=== PATIENT | female | born 1970 | race Caucasian/White ===

== ENCOUNTER 2018-10-09 18:13 | Observation (INO) | payer MEDICAID, OTHER ==
--- NOTE | 2018-10-09 19:44 | ED ---
Neurological HPI - HPI Summary HPI Summary: A 48 y/o F presents to ED c/o intermittent L-sided numbness to face, LUE and LLE onset last night. She cooked and ate dinner around 1800 yesterday. Then, patient watched TV with her grandchildren at onset. She felt the sx at first in her neck and through her LUE, described as pins and needle. Today, the sensation spread to her LLE. Associated sx: VALERO, mild weakness to L side, dragging her LLE, chills, dizziness. Denies: fever, CP. She has never had similar sx previously. Patient moved from [place] to [place] and has been off her meds ( Xanax and Zoloft) for the past two months. She denies other daily medications. She hasnt had an opportunity to see a doctor in [place]. Shes been taking them for approx. 5 years. She states being healthy otherwise. 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 - History of Current Complaint Chief Complaint: EDNeurologicalDeficit Stated Complaint: LT SIDE NUMBNESS PER PT Time Seen by Provider: 10/09/18 19:38 Hx Obtained From: Patient Onset/Duration: Started hours ago - last night ~ 1800, Still Present Timing: Constant Onset Severity: Moderate Current Severity: Severe Number of Seizures: 0 Pain Intensity: 10 Pain Scale Used: 0-10 Numeric Character: Numbness/Tingling - face, LUE, LLE Associated Signs and Symptoms: Positive: Unsteady Gait - dragging LLE, Headache , Weakness - L-sided, Dizziness. Negative: Fever, Chest Pain - Allergy/Home Medications Allergies/Adverse Reactions: Allergies Allergy/AdvReac Type Severity Reaction Status Date / Time bupropion [From Wellbutrin] Allergy Hives Verified 10/09/18 18:20 PMH/Surg Hx/FS Hx/Imm Hx Previously Healthy: No Sensory History: Reports: Hx Contacts or Glasses Opthamlomology History: Reports: Hx Contacts or Glasses Psychiatric History: Reports: Hx Anxiety, Hx Depression Infectious Disease History: No Infectious Disease History: Denies: Traveled Outside the [place] in Last 30 Days - Family History Known Family History: Positive: Cardiac Disease, Hypertension, Diabetes Family History: Breast CA; Brain CA - Social History Occupation: Unemployed Lives: Alone Review of Systems Positive: Chills. Negative: Fever Negative: Chest Pain Neurological: Other - pos: dizziness; unsteady gait - dragging LLE Positive: Headache, Weakness - L-sided, Paresthesia - L-sided, Numbness - face, LUE, LLE All Other Systems Reviewed And Are Negative: Yes Physical Exam - Summary Physical Exam Summary: Appearance: Well-appearing, Well-nourished, lying in bed comfortably Skin: Warm, dry, no obvious rash Eyes: sclera anicteric, no conjunctival pallor ENT: mucous membranes moist, pharynx appears normal Neck: Supple, nontender Respiratory: Clear to auscultation, no signs of respiratory distress Cardiovascular: Normal S1, S2. No murmurs. Normal distal pulses in tibial and radial bilaterally. Abdomen: Soft, nontender, normal active bowel sounds present Musculoskeletal: There is no rigidity or tremor noted. 5/5 strength in RUE/RLE, but 4/5 strength in LUE/LLE Neurological: Awake and alert, mentation is normal, speech is fluent and appropriate, level of consciousness is nml. The patient is alert and oriented. Cranial nerves are grossly intact, no bulbar paresis, EOM intact. Gaze is conjugate and without nystagmus. Peripheral vision is intact to confrontation. There are no gross sensory abnormalities to light touch. There is no gross truncal ataxia. Gait shows LLE weakness with leg slightly dragging, but is able to walk. Psychiatric: affect is normal, does not appear anxious or depressed Triage Information Reviewed: Yes Vital Signs On Initial Exam: Initial Vitals Temp Pulse Resp BP Pulse Ox 98 F 78 16 109/75 98 10/09/18 18:15 10/09/18 18:15 10/09/18 18:15 10/09/18 18:15 10/09/18 18:15 Vital Signs Reviewed: Yes - [place] Coma Scale Best Eye Response: 4 - Spontaneous Best Motor Response: 6 - Obeys Commands Best Verbal Response: 5 - Oriented Coma Scale Total: 15 Diagnostics - Vital Signs Vital Signs Temp Pulse Resp BP Pulse Ox 10/09/18 18:15 98 F 78 16 109/75 98 - Laboratory Result Diagrams: 10/09/18 22:10 10/09/18 22:10 Lab Statement: Any lab studies that have been ordered have been reviewed, and results considered in the medical decision making process. - CT BRAIN CT CT Interpretation Completed By: Radiologist Summary of CT Findings: IMPRESSION: Normal noncontrast head CT. ED provider has reviewed this report. - EKG 20:05 Cardiac Rate: NL - 73 bpm EKG Rhythm: Sinus Rhythm Summary of EKG Findings: NSR at 73 BPM, P waves, QRS complex, and T waves are within normal limits, T waves and intervals are normal, no ischemic changes. - Additional Comments Diagnostic Additional Comments: Neck MRA as read by radiologist: IMPRESSION: Normal neck MRA. ED provider has reviewed this report. Head MRA as read by radiologist: IMPRESSION: Normal brain MRA. ED provider has reviewed this report. Brain MRI as read by radiologist: IMPRESSION: Normal non-contrast brain MRI. ED provider has reviewed this report. C-SPINE MRI as read by radiologist: IMPRESSION: Mild multilevel cervical spondylopathy causing canal stenosis at C4- C5 through C6-C7. No nerve root compression. ED provider has reviewed this report. Re-Evaluation - Re-Evaluation 1 Re-Evaluation Time: 20:06 Change: Unchanged Comment: Discussing with patient the consult with Dr. Fairbanks, neuro, and plans for MRIs and possible admission. Patient voiced understanding. Course/Dx - Course Course Of Treatment: Patient is a 48 y/o F presenting with intermittent L-sided numbness to face, LUE and LLE onset last night. She was at rest at onset of sx. Sx started in her neck and through her LUE as parasthesia. Today, the sensation spread to her LLE. Associated sx: VALERO, mild weakness to L side, dragging her LLE , chills, dizziness. No fever, nor CP. Lab work shows WBC: 13, RBC: 5.06, alk phos: 132, total protein: 5.8. EKG shows NSR at 73 BPM, P waves, QRS complex, and T waves are within normal limits, T waves and intervals are normal, no ischemic changes. Brain CT is unremarkable. Neck and Head MRAs are unremarkable. Brain MRI had no acute findings. C-Spine MRI shows "Mild multilevel cervical spondylopathy causing canal stenosis at C4-C5 through C6- C7. No nerve root compression." - Diagnoses Provider Diagnoses: CVA (cerebral vascular accident) - Physician Notifications Discussed Care Of Patient With: Andre Fairbanks - neuro Time Discussed With Above Provider: 19:49 Instructed by Provider To: Other - Recommends MRA of head and neck, MRI brain and c-spine, stroke work-up, and admission to hospitalist. Discharge - Sign-Out/Discharge Documenting (check all that apply): Patient Departure - ADMIT All imaging exams completed and their final reports reviewed: Yes Patient Received Moderate/Deep Sedation with Procedure: No - Discharge Plan Condition: Fair Disposition: ADMITTED TO [facility] - Billing Disposition and Condition Condition: FAIR Disposition: Admitted to [facility] - Attestation Statements Document Initiated by Hinaibe: Yes Documenting Scribe: Charlie Penn Provider For Whom Hinaibe is Documenting (Include Credential): Dr. Franko Tijerina MD Scribe Attestation: Charlie Nielson scribed for Dr. Franko Tijerina MD on 10/10/18 at 0240. Scribe Documentation Reviewed: Yes Provider Attestation: The documentation as recorded by the hinaibCharlie koch accurately reflects the service I personally performed and the decisions made by , Dr. Franko Tijerina MD Status of Scribe Document: Viewed Consult Consult: 2049: Consult with Dr. Collins, hospitalist Will admit patient.
[2018-10-09] MEDS ORDERED: LORazepam TAB(*) 1 MG PO ONE (20:06)
[2018-10-09] MEDS ORDERED: Lorazepam PYXIS KEY ONE (20:26)
[2018-10-09] MEDS ORDERED: LORazepam INJ* 2 MG/ML 1 ML VIAL ONE ×2 (20:26)
[2018-10-09] MEDS ORDERED: LORazepam INJ* 2 MG/ML 1 ML VIAL IV PUSH ONE (20:28)
[2018-10-09] MEDS ORDERED: Gadobenate* (CONTRAST) 529 MG/ML 10 ML SDV IV ONE (20:47)
[2018-10-09 22:22] LABS: ABS Basophils 0.1 10^3/ul (0-0.2); ABS Eosinophils 0.2 10^3/ul (0-0.6); ABS Lymphocytes 3.6 10^3/ul (1.0-4.8); ABS Monocytes 1.2 10^3/ul (0-0.8); Eosinophil % 1.5 %; Hematocrit 45 % (35-47); Hemoglobin 14.6 g/dL (12.0-16.0); Lymphocyte % 27.6 %; Mean Corpuscular HGB Conc 33 g/dL (31-36); Mean Corpuscular Hemoglobin 29 pg (27-31); Mean Corpuscular Volume 89 fL (80-97); Mean Platelet Volume 8.2 fL (7.4-10.4); Nucleated Red Blood Cells % 0.1; Platelet Count 308 10^3/uL (150-450); Red Blood Count 5.06 10^6 /uL (3.70-4.87); Red Cell Distribution Width 15 % (10.5-15)
[2018-10-09 22:28] LABS: INR 0.91 (0.82-1.09)
[2018-10-09 22:39] LABS: ALT 13 U/L (7-52); AST 17 U/L (13-39); Albumin 3.4 g/dL (3.2-5.2); Albumin/Globulin Ratio 1.4 (1-3); Alkaline Phosphatase 132 U/L (34-104); Anion Gap 4 mmol/L (2-11); BUN/Creatinine Ratio 11.7 (8-20); Blood Urea Nitrogen 9 mg/dL (6-24); CO2 Carbon Dioxide 25 mmol/L (22-32); Chloride 109 mmol/L (101-111); EGFR African American 97.7 (>60); EGFR Non-African American 80.7 (>60); Globulin 2.4 g/dL (2-4); Glucose 98 mg/dL (70-100); Potassium 3.8 mmol/L (3.5-5.0); Sodium 138 mmol/L (135-145); Total Protein 5.8 g/dL (6.4-8.9)
[2018-10-09 22:47] LABS: HCG Pregnancy < 0.60 mIU/mL
[2018-10-10 00:25] LABS: TSH (Thyroid Stimulating Horm) 2.38 mcIU/mL (0.34-5.60)
[2018-10-10] MEDS ORDERED: Ondansetron INJ* 2 MG/ML VIAL IV PRN (00:45)
[2018-10-10] MEDS ORDERED: Ibuprofen TAB* 400 MG PO PRN (00:45)
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
[2018-10-10 06:36] LABS: ABS Basophils 0.1 10^3/ul (0-0.2); ABS Eosinophils 0.3 10^3/ul (0-0.6); ABS Lymphocytes 3.4 10^3/ul (1.0-4.8); ABS Monocytes 1.1 10^3/ul (0-0.8); Eosinophil % 2.4 %; Hematocrit 44 % (35-47); Hemoglobin 14.6 g/dL (12.0-16.0); Lymphocyte % 31.7 %; Mean Corpuscular HGB Conc 33 g/dL (31-36); Mean Corpuscular Hemoglobin 29 pg (27-31); Mean Corpuscular Volume 89 fL (80-97); Mean Platelet Volume 8.3 fL (7.4-10.4); Nucleated Red Blood Cells % 0.2; Platelet Count 299 10^3/uL (150-450); Red Cell Distribution Width 15 % (10.5-15); White Blood Count 10.8 10^3/uL (3.5-10.8)
[2018-10-10] MEDS ORDERED: Cyanocobalamin TAB* 500 MCG PO SCH (09:00)
[2018-10-10] MEDS ORDERED: Sertraline* 25 MG TAB PO SCH (09:00)
[2018-10-10 09:23] LABS: Urine Appearance Cloudy; Urine Bacteria Absent (Absent); Urine Bilirubin Negative (Negative); Urine Blood 3+ (Negative); Urine Color Yellow; Urine Glucose Negative (Negative); Urine Ketones Negative (Negative); Urine Nitrite Negative (Negative); Urine Protein Negative (Negative); Urine Red Blood Cell 3+(>10/hpf) (Absent); Urine Squamous Epithelial Cell Present (Absent); Urine Urobilinogen Negative (Negative); Urine White Blood Cell 1+(6-10/hpf) (Absent)
--- NOTE | 2018-10-10 09:34 | ECHO ---
*[facility]* [place] [address] Fax #: [phone] Transthoracic Echocardiogram Patient: Panfilo, Height: 59 in / [place] 149.9 cm : 1970 Weight: 119.7 lb / Study Date: 10/10/2018 54.4 kg Age: 48 BP: 110 / 60 Gender: F BMI/BSA: 24.2 kg/m^2 HR: 73 bpm / 1.52 m^2 *Baler Operator: Nicole Gan [facility] *Referring Physician: * Mouna CarusoReading Physician: Joel Shipley MD Indications: TIA. History: Risk factors: Current tobacco use. Conclusions Summary: 1. Left ventricle: Systolic function is normal. The estimated ejection fraction is 55-60%. 2. Atrial septum: A PFO is not demonstrated by color Doppler or agitated saline contrast. 3. No significant valve disease. Study data: Transthoracic echocardiogram. Procedure: Transthoracic echocardiography was performed. Image quality was fair. A bubble study was performed. Images 28 and 29. Complete 2D, spectral Doppler, and color flow Doppler. Location: Bedside. Patient status: Inpatient. Patient room number: 446 01. No prior study is available for comparison. Rhythm: Normal sinus rhythm. Findings Left ventricle: The cavity size is normal. Wall thickness is normal. Systolic function is normal. The estimated ejection fraction is 55-60%. Wall motion is normal; there are no regional wall motion abnormalities. Left ventricular diastolic function parameters are normal. Right ventricle: The cavity size is normal. Systolic function is normal. Left atrium: The atrium is normal in size. Right atrium: The atrium is normal in size. Atrial septum: A PFO is not demonstrated by color Doppler or agitated saline contrast. Mitral valve: The leaflets are normal thickness. There is no evidence of stenosis. There is no significant regurgitation. Aortic valve: The valve is probably trileaflet. The leaflets are normal thickness. There is no evidence of stenosis. There is trivial regurgitation. Tricuspid valve: The leaflets are normal thickness. There is no evidence of stenosis. There is trivial regurgitation. Pulmonic valve: Not well visualized. There is no significant regurgitation. Aorta: Aortic arch: The aortic arch is appears normal. The aortic root is not dilated. Pericardium: There is no significant pericardial effusion. Pulmonary arteries: Not well visualized. Systemic veins: Inferior vena cava: The vessel is normal in size. The respirophasic diameter changes are in the normal range (>= 50%). Measurements Left ventricle Value Ref Right atrium continued Value Ref LOUIE, LAX 4.1 cm 3.8 - 5.2 ML dim, ES, A4C 3.2 cm 2.6 - 4.4 ESD, LAX 2.9 cm 2.2 - 3.5 Estimated RAP 3 mm Hg --------- FS, LAX 28 % 27 - 45 PW, ED, LAX 0.7 cm 0.6 - 0.9 Aortic valve Value Ref EF 55 % 54 - 74 Yudi diam, ED 1.9 cm --------- E', lat yudi, TDI 16.0 cm/sec >=10.0 Peak v, S 1.26 m/sec ----- ---- E/e', lat yudi, 5 VTI, S 23.5 cm -------- - TDI Mean grad, S 3.2 mm Hg --------- E', med yudi, TDI 12.0 cm/sec >=7.0 Peak grad, S 6.4 mm Hg ----- ---- E/e', med yudi, 6 TDI Mitral valve Value Ref E', avg, TDI 14.0 cm/sec Peak E 0.76 m/sec -------- - E/e', avg, TDI 5 <=14 Peak A 0.57 m/sec ----- ---- Decel time 155 ms --------- LVOT Value Ref Peak grad, D 2.3 mm Hg --------- Peak radha, S 1.12 m/sec Peak E/A ratio 1.32 --------- VTI, S 23.3 cm Peak grad, S 5 mm Hg Pulmonic valve Value Ref Mean grad, S 2 mm Hg Peak v, S 0.67 m/sec --------- Peak grad, S 1.8 mm Hg --------- Ventricular septum Value Ref IVS, ED 0.8 cm 0.6 - 0.9 Aortic root Value Ref Root diam 2.9 cm <3.8 Right ventricle Value Ref LOUIE, LAX 2.3 cm Ascending aorta Value Ref LOUIE major ax, (L) 2.7 cm 5.9 - 8.3 AAo AP diam, S 3.1 cm --------- A4C Aortic arch Value Ref Left atrium Value Ref Arch diam 2.5 cm --------- AP dim, ES (L) 2.61 cm 2.70 - 3.80 Inferior vena cava Value Ref SI dim ES, LAX 2.6 cm Diam 1.5 cm --------- ML dim, A4C 3.3 cm Vol/bsa, ES, 2-p 21 ml/m^2 16 - 34 Right atrium Value Ref SI dim, ES 4.0 cm 3.4 - 5.3 Legend: (L) and (H) suly values outside specified reference range. Prepared and electronically signed by Joel Sheppard MD 10/10/2018 09:34
[2018-10-10] MEDS ORDERED: Cyanocobalamin INJ * 1,000 MCG/ML VIAL 1 ML VIAL IM ONE (11:28)
[2018-10-10] MEDS ORDERED: Magnesium Oxide TAB* 400 MG PO SCH (12:00)
[2018-10-10] MEDS ORDERED: RIBOFLAVIN 100 MG PO SCH (12:00)
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
[2018-10-10 13:29] VITALS: BP 92/53
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
== END 2018-10-10 14:37 | disposition home or self-care (01) ==
LOC: ED 18:13 → MEDTELE 22:47
PROVIDERS: ADMIT Internal Medicine; ATTEND Internal Medicine
DX: R20.2 Paresthesia of skin (principal); G43.909 Migraine, unspecified, not intractable, without status migrainosus; F41.8 Other specified anxiety disorders; F32.9 Major depressive disorder, single episode, unspecified; D51.9 Vitamin B12 deficiency anemia, unspecified; R42 Dizziness and giddiness; R51 Headache; R53.1 Weakness; Z79.899 Other long term (current) drug therapy; F17.210 Nicotine dependence, cigarettes, uncomplicated
CPT/HCPCS: 36415; 70450; 70544; 70549; 70551; 72141; 80053; 81003; 81015; 82607; 83605; 84443; 84484; 84702; 85025; 85610; 87086; 93005; 93306; 96372; 96374; 96375; 99283; A9270-GY; A9577; G0378; J2060; J2405; J3420

== ENCOUNTER 2018-12-04 10:12 | Emergency (ER) | payer MEDICAID, OTHER ==
[2018-12-04 12:00] LABS: Rapid Strep Molecular Negative (Negative)
[2018-12-04 12:56] VITALS: BP 92/65
--- NOTE | 2018-12-04 13:35 | ED ---
Neurological HPI - HPI Summary HPI Summary: Patient is a 48-year-old female who presents to the ED with left-sided unilateral paroxysmal sharp/burning pain to the face involving the forehead cheek and chin. Denies any pain to the right side, however states will sometimes travel over there briefly after having an episode to the left side. She states she may have been diagnosed with this in the past and was given steroids, however was unsure of the exact name. Denies any other weakness, facial droop, headache, confusion, memory loss or other neuro symptoms. Last time she had this for several months ago. She was admitted 2 months ago for left-sided weakness and a full workup was obtained. She has a follow-up with Dr. Fairbanks for this on Sunday, 6 days from today. She takes no medications and is otherwise healthy. She does admit to having a sore and scratchy throat recently and 2 of her grandchildren were recently diagnosed with strep throat. She endorses loss of voice and odynophagia, but continues to be able to eat and drink okay. Denies tick bites or rashes. - History of Current Complaint Chief Complaint: EDGeneral Stated Complaint: NUMBNESS IN LEFT ARM/CANT TALK/SORE THROAT PER PT Time Seen by Provider: 12/04/18 11:05 Hx Obtained From: Patient Onset/Duration: Sudden Onset Timing: Constant Onset Severity: Moderate Current Severity: Moderate Seizure Severity: Moderate Neurological Deficit Location: Facial Pain Intensity: 0 Pain Scale Used: 0-10 Numeric Character: Sharp Frequency: Episodes Lasting ____ (in Mins/Days/Weeks/Years) - 10 seconds intermittent - Additional Pertinent History Primary Care Physician: NISSA - Allergy/Home Medications Allergies/Adverse Reactions: Allergies Allergy/AdvReac Type Severity Reaction Status Date / Time bupropion [From Wellbutrin] Allergy Hives Verified 10/09/18 18:20 PMH/Surg Hx/FS Hx/Imm Hx Previously Healthy: Yes Endocrine/Hematology History: Denies: Hx Diabetes Cardiovascular History: Denies: Hx Hypertension, Hx Pacemaker/ICD History: Denies: Hx Renal Disease Sensory History: Reports: Hx Contacts or Glasses Denies: Hx Hearing Aid Opthamlomology History: Reports: Hx Contacts or Glasses Psychiatric History: Reports: Hx Anxiety, Hx Depression Denies: Hx Panic Disorder - Surgical History Surgery Procedure, Year, and Place: tubal ligation - Immunization History Hx Pertussis Vaccination: No Immunizations Up to Date: Yes Infectious Disease History: No Infectious Disease History: Denies: Traveled Outside the [place] in Last 30 Days - Family History Known Family History: Positive: Cardiac Disease, Hypertension, Diabetes Family History: Breast CA; Brain CA - Social History Occupation: Employed Full-time Lives: With Family Alcohol Use: Occasionally Hx Substance Use: Yes Substance Use Type: Reports: Marijuana Hx Tobacco Use: Yes Smoking Status (MU): Light Every Day Tobacco Smoker Type: Cigarettes Review of Systems Negative: Fever, Chills, Fatigue, Skin Diaphoresis Positive: Other - tearing to the L eye Negative: Epistaxis, Dental Pain Negative: Palpitations, Chest Pain Negative: Arthralgia, Myalgia Skin: Negative Neurological: Other - pain to the L side of the face Negative: Headache, Weakness, Paresthesia, Numbness, Syncope All Other Systems Reviewed And Are Negative: Yes Physical Exam Triage Information Reviewed: Yes Vital Signs On Initial Exam: Initial Vitals Temp Pulse Resp BP Pulse Ox 98.7 F 74 14 93/54 98 12/04/18 10:18 12/04/18 10:18 12/04/18 10:18 12/04/18 10:18 12/04/18 10:18 Vital Signs Reviewed: Yes Appearance: Positive: Well-Appearing, Well-Nourished Skin: Positive: Skin Color Reflects Adequate Perfusion Head/Face: Positive: Normal Head/Face Inspection Eyes: Positive: EOMI, Conjunctiva Clear, Other: - tearing from the L eye Neck: Positive: Supple, No Lymphadenopathy Respiratory/Lung Sounds: Positive: Clear to Auscultation, Breath Sounds Present Cardiovascular: Positive: RRR, Pulses are Symmetrical in both Upper and Lower Extremities Musculoskeletal: Positive: Normal, Strength/ROM Intact Neurological: Positive: Other - left V1-V3 pain to the face - L sided tearing from the eye Psychiatric: Positive: Affect/Mood Appropriate AVPU Assessment: Alert Diagnostics - Vital Signs Vital Signs Temp Pulse Resp BP Pulse Ox 12/04/18 12:55 97.8 F 80 16 92/65 97 12/04/18 12:33 62 92/66 96 12/04/18 12:03 68 95/61 96 12/04/18 12:00 72 96 12/04/18 11:33 67 114/70 98 07/24/19 11:05 74 99 12/04/18 10:18 98.7 F 74 14 93/54 98 - Laboratory Lab Results: Lab Results 12/04/18 Range/Units 11:32 Group A Strep Rapid Negative (Negative) Lab Statement: Any lab studies that have been ordered have been reviewed, and results considered in the medical decision making process. NIH Scale - NIH Scale Level of Consciousness: Alert/Keenly Responsive Course/Dx - Course Course Of Treatment: During this evaluation, the patient is evaluated for left- sided facial pain. She states the pain is intermittent, lasting several minutes and will resolve for several minutes. This has been present 2 days. She is also endorsing some inner ear pain and odynophagia with loss of voice. Strep swab obtained and is negative. On physical examination, patient is endorsing pain the 1 through V3, this is paroxysmal and described as sharp and burning. This appears to be trigeminal neuralgia based on symptoms with no other neuro deficits involved. TM without erythema or evidence of zoster. Denies any weakness. Denies any facial droop. Endorses tearing from the left eye intermittently. Symptoms have been present 2 days, and have remained intermittent. Discussed case with Dr. Fairbanks who recommends Carbamazepime 100mg once daily x 7 days (until f/u with him on Sunday already scheduled.) She is OK with this plan and discharge. - Differential Dx Differential Diagnoses Neuro: Positive: Cerebrovascular Accident, Transient Ischemic Attack, Other - trigeminal zoster - Diagnoses Provider Diagnoses: Trigeminal neuralgia - Physician Notifications Discussed Care Of Patient With: Andre Fairbanks Discharge - Sign-Out/Discharge Documenting (check all that apply): Patient Departure Patient Received Moderate/Deep Sedation with Procedure: No - Discharge Plan Condition: Stable Disposition: HOME Prescriptions: Carbamazepine [Carbamazepine ER] 100 mg PO DAILY #7 tab carBAMazepine ER TAB(*) [Tegretol Xr TAB(*)] 100 mg PO DAILY #7 tab.xr Patient Education Materials: Trigeminal Neuralgia (ED) Referrals: Monie Fuentes, [employer]INE OPERATOR [Primary Care Provider] - Additional Instructions: You have evidence of a trigeminal neuralgia, I have given you information You will continue to follow up with Dr. Fairbanks next week on Sunday Carbamazepine once daily 7 days for control of symptoms Return to the ED if he develop any worsening or changing symptoms - Billing Disposition and Condition Condition: STABLE Disposition: Home
== END 2018-12-04 12:55 | disposition home or self-care (01) ==
LOC: ED 10:12
DX: G50.0 Trigeminal neuralgia (principal); F17.210 Nicotine dependence, cigarettes, uncomplicated; Z88.8 Allergy status to other drugs, medicaments and biological substances
CPT/HCPCS: 87651; 99282

== ENCOUNTER 2019-01-30 18:07 | Emergency (ER) | payer OTHER ==
--- OUTSIDE RECORDS SUMMARY | 2019-01-30 19:00 | XMS REPORT | Continuity of Care Document ---
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 [phone] Problems Description No Information Available Social History Type Date Description Comments Sex Unknown ETOH Use Currently consumes 2 drinks per week alcohol Tobacco Use Start: Unknown Light tobacco smoker (10 or fewer cigarettes/day) Recreational Drug Use Denies Drug Use Smoking Status Reviewed: 01/22/19 Light tobacco smoker (10 or fewer cigarettes/day) Allergies, Adverse Reactions, Alerts Active Allergies Reaction Severity Comments Date Bupropion Hives Moderate 12/03/2018 Medications Active Medications SIG Qnty Indications Ordering Date Provider Carbamazepine ER take one capsules 42caps G50.0 Frederic Lopez 01/22/2019 200mg by mouth at night Flora Acosta Caps ER 12HR for 2 weeks. Take two capsules po twice a day afterwards. Carbamazepine ER take one cap by 14caps Frederic Lopez 01/22/2019 100mg mouth in in the Flora Acosta Caps ER 12HR morning for 2 weeks. Sertraline HCL 1 1/2 by mouth Unknown 50mg every day Tablets Magnesium-Oxide 1 by mouth every Unknown day 400(241.3mg) mg Tablets Vitamin B-2 1 tab by mouth Unknown 100mg Tablets once a day Vitamin B12 1 by mouth every Unknown 1000mcg day Tablets ER Motrin Ib take 2 tabs in am Unknown 200mg Tablets and 2 in pm as needed for pain History Medications Carbamazepine ER one by mouth in 60caps G43.109 Frederic Lopez 12/11/2018 - 100mg in the morning Flora Acosta 12/16/2018 Caps ER 12HR and one cap in at night Carbamazepine ER Take one cap by rylan G50.0 Frederic Lopez 12/11/2018 - 100mg mouth in in the Flora Acosta 01/22/2019 Caps ER 12HR morning and one cap in at night No Active Medications Unknown 11/27/2018 - 12/11/2018 Immunizations Description No Information Available Vital Signs Date Vital Result Comment 01/22/2019 10:46am Height 59 inches 4'11" Weight 125.00 lb Heart Rate 68 /min BP Systolic 102 mmHg BP Diastolic 72 mmHg BMI (Body Mass Index) 25.2 kg/m2 12/11/2018 3:14pm Height 59 inches 4'11" Weight 130.50 lb Heart Rate 72 /min BP Systolic 98 mmHg BP Diastolic 74 mmHg Respiratory Rate 20 /min BMI (Body Mass Index) 26.4 kg/m2 Results Description No Information Available Procedures Date Code Description Status 10/10/2018 41463 ECHO Transthorasic Realtime 2D W Doppler & Color Flow Hosp Completed Medical Devices Description No Information Available Encounters Type Date Location Provider Dx Diagnosis Office Visit 12/11/2018 [facility] Scott Casey, G43.109 Migraine with 3:00p Clinic RETAIL CASHIER ASSOCIATE aura, not intractable, w/o status migrainosus Z79.899 Other termination clerk (current) drug therapy G50.0 Trigeminal neuralgia Office Visit 10/10/2018 [facility] Andre Fairbanks, R20.2 Paresthesia of 7:00a Clinic skin G43.109 Migraine with aura, not intractable, w/o status migrainosus F32.9 Major depressive disorder, single episode, unspecified F41.9 Anxiety disorder, unspecified Office Visit 10/10/2018 10:28a [facility] R20.0 Anesthesia of caroline Parrish NP skin Hospitalists G43.809 Other migraine, not intractable, without status migrainosus F41.9 Anxiety disorder, unspecified F32.9 Major depressive disorder, single episode, unspecified E53.9 Vitamin B deficiency, unspecified Office Visit 10/09/2018 [facility] R20.0 Anesthesia of 10:27a caroline Parrish PA skin Hospitalists R53.1 Weakness D72.829 Elevated white blood cell count, unspecified F32.9 Major depressive disorder, single episode, unspecified Assessments Date Code Description Provider 01/22/2019 G43.109 Migraine with aura, not intractable, Scott Casey, RETAIL CASHIER ASSOCIATE without status migrainosus 01/22/2019 G50.0 Trigeminal neuralgia Scottpascual Contike, RETAIL CASHIER ASSOCIATE 01/22/2019 Z79.899 Other termination clerk (current) drug therapy Scottpascual Contike, RETAIL CASHIER ASSOCIATE 12/11/2018 G43.109 Migraine with aura, not intractable, Scottpascual Casey, RETAIL CASHIER ASSOCIATE without status migrainosus 12/11/2018 Z79.899 Other correction (current) drug therapy Scott Gallitoke, RETAIL CASHIER ASSOCIATE 12/11/2018 G50.0 Trigeminal neuralgia Scott Gallitoke, RETAIL CASHIER ASSOCIATE 10/10/2018 R20.2 Paresthesia of skin Andre Fairbanks MD 10/10/2018 G45.9 Transient cerebral ischemic attack, Joel Sheppard M.D. unspecified 10/10/2018 G43.109 Migraine with aura, not intractable, Andre Fairbanks MD without status migrainosus 10/10/2018 R20.0 Anesthesia of skin Katarina Shortle, RETAIL CASHIER ASSOCIATE 10/10/2018 F32.9 Major depressive disorder, single Andre Fairbanks MD episode, unspecified 10/10/2018 G43.809 Other migraine, not intractable, without Katarina Shortle , RETAIL CASHIER ASSOCIATE status migrainosus 10/10/2018 F41.9 Anxiety disorder, unspecified Andre Fairbanks MD 10/10/2018 F41.9 Anxiety disorder, unspecified Katarina Shortle, RETAIL CASHIER ASSOCIATE 10/10/2018 F32.9 Major depressive disorder, single Katarina Shortle, RETAIL CASHIER ASSOCIATE episode, unspecified 10/10/2018 E53.9 Vitamin B deficiency, unspecified Katarina Shortle, RETAIL CASHIER ASSOCIATE 10/09/2018 R20.0 Anesthesia of skin HARMAN Gray 10/09/2018 R53.1 Weakness HARMAN Gray 10/09/2018 D72.829 Elevated white blood cell count, HARMAN Gray unspecified 10/09/2018 F32.9 Major depressive disorder, single HARMAN Gray episode, unspecified Plan of Treatment Future Appointment(s):02/19/2019 9:00 am - Scott Casey NP at [facility]01/22/2019 - Scott Casey, LANEG43.109 Migraine with aura , not intractable, without status itrrungqlevL18.0 Trigeminal neuralgiaNew Medication:Carbamazepine ER 200 mg - take one capsules by mouth at night for 2 weeks. Take two capsules po twice a day afterwards.Follow up:ONE MONTH with Nelly.899 Other termination clerk (current) drug therapy Functional Status Description No Information Available Mental Status Description No Information Available Referrals Description No Information Available
--- OUTSIDE RECORDS SUMMARY | 2019-01-30 19:00 | XMS REPORT | Continuity of Care Document ---
:1970 External Reference #:[id number] Author Name Sandra Puentes Care Team Providers Name Role Phone Frederic Parada MD Primary Care Physician Unavailable Payers Date Identification Numbers Payment Provider Subscriber Effective: 2018 Policy Number: [id number] [address] [employer] Number: [id number] [address] Group Name: [place] [address] PayID: [id number] Expires: 2018 Policy Number: [id number] Medicaid [employer] Name: 1 1 [address] PayID: [id number] [place] [address] Family History Date Family Member(s) Observation Comments General Diabetes General Hypertension General Heart Disease General Breast Cancer General Brain Cancer Social History Type Date Description Comments Sex Unknown Marital Status Lives With Daughter 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 Caps ER 12HR and one cap in at night Sertraline HCL 1 1/2 by mouth Unknown 50mg every day Tablets Magnesium-Oxide 1 by mouth every Unknown day 400(241.3mg) mg Tablets Vitamin B-2 1 tab by mouth Unknown 100mg Tablets once a day Vitamin B12 1 by mouth every Unknown 1000mcg day Tablets ER Carbamazepine ER one tablet daily Unknown 100mg Caps ER 12HR Motrin Ib take 2 tabs in Unknown 200mg Tablets am and 2 in pm as needed for pain History Medications No Active Medications Unknown 11/27/2018 - 12/11/2018 Vital Signs Date Vital Result Comment 12/11/2018 3:14pm Height 59 inches 4'11" Weight 130.50 lb Heart Rate 72 /min BP Systolic 98 mmHg BP Diastolic 74 mmHg Respiratory Rate 20 /min BMI (Body Mass Index) 26.4 kg/m2 Procedures Date Code Description Status 10/10/2018 06332 ECHO Transthorasic Realtime 2D W Doppler & Color Flow Hosp Completed Encounters Type Date Location Provider Dx Diagnosis Office Visit 10/10/2018 [facility] R20.0 Anesthesia of skin 10:28a caroline Parrish NP Hospitalists G43.809 Other migraine, not intractable, without status migrainosus F41.9 Anxiety disorder, unspecified F32.9 Major depressive disorder, single episode, unspecified E53.9 Vitamin B deficiency, unspecified Office Visit 10/09/2018 [facility] R20.0 Anesthesia of 10:27a caroline Parrish PA skin Hospitalists R53.1 Weakness D72.829 Elevated white blood cell count, unspecified F32.9 Major depressive disorder, single episode, unspecified Plan of Treatment Future Appointment(s):01/17/2019 3:30 pm - Scott Casey NP at [facility]12/11/2018 - Scott Casey NPG43.109 Migraine with aura, not intractable, without status migrainosusNew Medication:Carbamazepine ER 100 mg - one by mouth in in the morning and one cap in at nightFollow up:ONE DPSAFR48.899 Other retirement (current) drug therapy
[2019-01-30] MEDS ORDERED: Diazepam TAB(*) 5 MG PO ONE (19:08)
[2019-01-30] MEDS ORDERED: Ibuprofen TAB* 600 MG PO ONE (19:09)
--- NOTE | 2019-01-30 19:09 | ED ---
Upper Extremity Pain - HPI Summary HPI Summary: Patient complains of pain radiating up left arm into left side neck and down left-sided back. Patient states she woke up with this pain today. Denies trauma, fever, cough, sore throat, CP, SOB, N/V/D, abdominal pain, change in urine, change in BM. She has history of several visits for left side issues. Negative brain MRI, negative neck MRA, negative head MRI, negative brain CT on . - History of Current Complaint Chief Complaint: EDExtremityUpper Stated Complaint: LT ARM AND BACK PAIN PER PT Time Seen by Provider: 01/30/19 18:32 Hx Obtained From: Patient Mechanism Of Injury: Unknown Onset/Duration: Started Hours Ago Timing: Constant Severity Initially: Severe Severity Currently: Severe Pain Location: Shoulder, Arm Character: Aching, Throbbing Aggravating Factor(s): Movement Alleviating Factor(s): Nothing Associated Signs & Symptoms: Positive: Negative - Allergies/Home Medications Allergies/Adverse Reactions: Allergies Allergy/AdvReac Type Severity Reaction Status Date / Time bupropion [From Wellbutrin] Allergy Hives Verified 01/30/19 18:10 PMH/Surg Hx/FS Hx/Imm Hx Endocrine/Hematology History: Denies: Hx Diabetes Cardiovascular History: Denies: Hx Hypertension, Hx Pacemaker/ICD History: Denies: Hx Dialysis, Hx Renal Disease Sensory History: Reports: Hx Contacts or Glasses Denies: Hx Hearing Aid Opthamlomology History: Reports: Hx Contacts or Glasses EENT History: Denies: Hx Deafness Psychiatric History: Reports: Hx Anxiety, Hx Depression Denies: Hx Panic Disorder - Surgical History Surgery Procedure, Year, and Place: tubal ligation Infectious Disease History: No Infectious Disease History: Denies: Traveled Outside the [place] in Last 30 Days - Family History Known Family History: Positive: Cardiac Disease, Hypertension, Diabetes Family History: Breast CA; Brain CA - Social History Alcohol Use: Occasionally Hx Substance Use: Yes Substance Use Type: Reports: Marijuana Hx Tobacco Use: Yes Smoking Status (MU): Light Every Day Tobacco Smoker Type: Cigarettes Review of Systems Constitutional: Negative Eyes: Negative ENT: Negative Cardiovascular: Negative Respiratory: Negative Gastrointestinal: Negative Genitourinary: Negative Musculoskeletal: Other Skin: Negative Neurological: Negative Psychological: Normal All Other Systems Reviewed And Are Negative: Yes Physical Exam - Summary Physical Exam Summary: Neuro exam normal. 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 Normal flexion and extension of all joints of left upper extremity. Tenderness to palpation of left shoulder, left trapezius muscle left sternocleidomastoid, left paraspinal muscles of C-spine, T-spine. PMS intact distally. No ecchymosis, erythema, deformity, swelling noted to back or left upper extremity. Triage Information Reviewed: Yes Vital Signs On Initial Exam: Initial Vitals Temp Pulse Resp BP Pulse Ox 98.0 F 86 20 150/81 99 01/30/19 18:09 01/30/19 18:09 01/30/19 18:01/30/19 18:01/30/19 18:09 Vital Signs Reviewed: Yes Appearance: Positive: Well-Appearing Skin: Positive: Warm Head/Face: Positive: Normal Head/Face Inspection Eyes: Positive: Normal Neck: Positive: Supple Respiratory/Lung Sounds: Positive: Clear to Auscultation Cardiovascular: Positive: Normal Abdomen Description: Positive: Nontender Neurological: Positive: Normal Psychiatric: Positive: Normal AVPU Assessment: Alert - José Miguel Coma Scale Best Eye Response: 4 - Spontaneous Best Motor Response: 6 - Obeys Commands Best Verbal Response: 5 - Oriented Coma Scale Total: 15 Diagnostics - Vital Signs Vital Signs Temp Pulse Resp BP Pulse Ox 01/30/19 18:09 98.0 F 86 20 150/81 99 - Laboratory Lab Statement: Any lab studies that have been ordered have been reviewed, and results considered in the medical decision making process. Course/Dx - Course Course Of Treatment: Patient complains of pain radiating up left arm into left side neck and down left-sided back. Patient states she woke up with this pain today. Denies trauma, fever, cough, sore throat, CP, SOB, N/V/D, abdominal pain , change in urine, change in BM. She has history of several visits for left side issues. Negative brain MRI, negative neck MRA, negative head MRI, negative brain CT on 10/09/18. Vital signs within normal limits. Physical exam consistent with muscle spasm. Symptoms improved with Toradol 30 mg IM, Valium 5 mg by mouth. Rx for Valium 5 mg by mouth. - Diagnoses Provider Diagnoses: Muscle spasm of left shoulder, Neck pain, acute Discharge ED - Sign-Out/Discharge Documenting (check all that apply): Patient Departure Patient Received Moderate/Deep Sedation with Procedure: No - Discharge Plan Condition: Stable Disposition: HOME Prescriptions: Diazepam TAB(*) [Valium TAB(*)] 5 mg PO TID PRN 2 Days #6 tab MDD 3 tabs PRN Reason: Spasms Patient Education Materials: Muscle Spasm (ED) Referrals: Monie Fuentes, POWER PLANT OPERATORS SUPERVISOR [Primary Care Provider] - Additional Instructions: Take Valium as directed for muscle spasm. Be aware that he can make you drowsy , do not drive or operative machinery while taking Valium. Alternatively he may take it at night when you go to sleep. Take ibuprofen 400 mg every 6 hours for 2 days. Follow-up with primary care. - Billing Disposition and Condition Condition: STABLE Disposition: Home - Attestation Statements Provider Attestation: I was available for consultation for this patient. I did not evaluate the patient, or participate in any medical decision making or disposition decisions unless I am specifically named in the chart as having consulted on the patient. If I have consulted on the patient, please see my own ED note on the patient encounter. Philip Ugarte MD
[2019-01-30] MEDS ORDERED: Ketorolac INJ* 30 MG/ML 1 ML VIAL IM ONE (19:10)
[2019-01-30 19:31] VITALS: BP 106/67
== END 2019-01-30 19:23 | disposition home or self-care (01) ==
LOC: ED 18:07
DX: M62.838 Other muscle spasm (principal); M54.2 Cervicalgia; F41.9 Anxiety disorder, unspecified; F32.9 Major depressive disorder, single episode, unspecified; F17.210 Nicotine dependence, cigarettes, uncomplicated; Z98.51 Tubal ligation status; Z79.899 Other long term (current) drug therapy; Z88.8 Allergy status to other drugs, medicaments and biological substances
CPT/HCPCS: 96372; 99282; A9270-GY; J1885

== ENCOUNTER 2019-02-22 17:01 | Emergency (ER) | payer OTHER ==
--- OUTSIDE RECORDS SUMMARY | 2019-02-22 17:42 | XMS REPORT | Continuity of Care Document ---
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 Problems Description No Information Available Social History Type Date Description Comments Sex Unknown ETOH Use Currently consumes 2 drinks per week alcohol Tobacco Use Start: Unknown Light tobacco smoker (10 or fewer cigarettes/day) Recreational Drug Use Denies Drug Use Smoking Status Reviewed: 02/19/19 Light tobacco smoker (10 or fewer cigarettes/day) Exercise Type/Frequency Does not exercise Allergies, Adverse Reactions, Alerts Active Allergies Reaction Severity Comments Date Bupropion Hives Moderate 12/03/2018 Medications Active Medications SIG Qnty Indications Ordering Date Provider Gabapentin Take one cap by 90caps G50.0 Frederic SMatti 02/19/2019 300mg Capsules mouth for one Flora Acosta week; 1 cap by mouth twice a day for 1 wk; then take one cap in the morning and two caps hs Carbamazepine ER Take one cap in 120caps G50.0 Frederic S. 02/19/2019 200mg the morning and Flora Acosta Caps ER 12HR two caps at night for two weeks, then take 2 capsules by mouth twice a day Sertraline HCL 1 1/2 by mouth Unknown 50mg every day Tablets Motrin Ib take 2 tabs in Unknown 200mg Tablets am and 2 in pm as needed for pain Chantix 1 mg twice a day Unknown 1mg Tablets History Medications Carbamazepine ER take one capsules 42caps G50.0 Frederic S. 01/22/2019 - by mouth twice a Flora Acosta 02/19/2019 200mg Caps ER 12HR day afterwards. Carbamazepine ER take one cap by 14caps Frederic MooneyMatti 01/22/2019 - mouth in in the Flora Acosta 02/18/2019 100mg Caps ER 12HR morning for 2 weeks. Carbamazepine ER one by mouth in in 60caps G43.109 Frederic MooneyMatti 12/11/2018 - the morning and Flora Acosta 12/16/2018 100mg Caps ER 12HR one cap in at night Carbamazepine ER Take one cap by 60caps G50.0 Frederic SMatti 12/11/2018 - mouth in in the Flora Acosta 01/22/2019 100mg Caps ER 12HR morning and one cap in at night No Active Unknown 11/27/2018 - Medications 12/11/2018 Immunizations Description No Information Available Vital Signs Date Vital Result Comment 02/19/2019 9:26am Height 59 inches 4'11" Weight 130.00 lb Heart Rate 72 /min BP Systolic Sitting 126 mmHg BP Diastolic Sitting 78 mmHg Respiratory Rate 15 /min BMI (Body Mass Index) 26.3 kg/m2 01/22/2019 10:46am Height 59 inches 4'11" Weight 125.00 lb Heart Rate 68 /min BP Systolic 102 mmHg BP Diastolic 72 mmHg BMI (Body Mass Index) 25.2 kg/m2 Results Description No Information Available Procedures Date Code Description Status 10/10/2018 32746 ECHO Transthorasic Realtime 2D W Doppler & Color Flow Hosp Completed Medical Devices Description No Information Available Encounters Type Date Location Provider Dx Diagnosis Office Visit 01/22/2019 [facility] Scott Casey NP G43.109 Migraine with 10:30a [facility] aura, not intractable, w/o status migrainosus G50.0 Trigeminal neuralgia Z79.899 Other watcher automat long goods (current) drug therapy Office Visit 12/11/2018 [facility] Scott Casey G43.109 Migraine with 3:00p Clinic BOARD CERTIFIED ORTHODONTIST aura, not intractable, w/o status migrainosus Z79.899 Other watcher automat long goods (current) drug therapy G50.0 Trigeminal neuralgia Office Visit 10/10/2018 [facility] Andre Fairbanks, R20.2 Paresthesia of 7:00a Clinic skin G43.109 Migraine with aura, not intractable, w/o status migrainosus F32.9 Major depressive disorder, single episode, unspecified F41.9 Anxiety disorder, unspecified Office Visit 10/10/2018 10:28a [facility] R20.0 Anesthesia of caroline Parrish NP skin Hospitalists G43.809 Other migraine, not intractable, without status migrainosus F41.9 Anxiety disorder, unspecified F32.9 Major depressive disorder, single episode, unspecified E53.9 Vitamin B deficiency, unspecified Office Visit 10/09/2018 [facility] R20.0 Anesthesia of 10:27a caroline Parrish PA skin Hospitalists R53.1 Weakness D72.829 Elevated white blood cell count, unspecified F32.9 Major depressive disorder, single episode, unspecified Assessments Date Code Description Provider 02/19/2019 G43.109 Migraine with aura, not intractable, Scottpascual Contike, BOARD CERTIFIED ORTHODONTIST without status migrainosus 02/19/2019 G50.0 Trigeminal neuralgia Scott Knaake, BOARD CERTIFIED ORTHODONTIST 02/19/2019 Z79.899 Other residential (current) drug therapy Scott Knaake, BOARD CERTIFIED ORTHODONTIST 01/22/2019 G43.109 Migraine with aura, not intractable, Scott Bartarashke, BOARD CERTIFIED ORTHODONTIST without status migrainosus 01/22/2019 G50.0 Trigeminal neuralgia Scott Knaake, BOARD CERTIFIED ORTHODONTIST 01/22/2019 Z79.899 Other residential (current) drug therapy Scott Knaake, BOARD CERTIFIED ORTHODONTIST 12/11/2018 G43.109 Migraine with aura, not intractable, Scott Bartarashke, BOARD CERTIFIED ORTHODONTIST without status migrainosus 12/11/2018 Z79.899 Other watcher automat long goods (current) drug therapy Scott Knaake, BOARD CERTIFIED ORTHODONTIST 12/11/2018 G50.0 Trigeminal neuralgia Scott Knaake, BOARD CERTIFIED ORTHODONTIST 10/10/2018 R20.2 Paresthesia of skin Andre Fairbanks MD 10/10/2018 G45.9 Transient cerebral ischemic attack, Joel Sheppard M.D. unspecified 10/10/2018 G43.109 Migraine with aura, not intractable, Andre Fairbanks MD without status migrainosus 10/10/2018 R20.0 Anesthesia of skin Katarina Gomez NP 10/10/2018 F32.9 Major depressive disorder, single Andre Fairbanks MD episode, unspecified 10/10/2018 G43.809 Other migraine, not intractable, without Katarina Shortle , BOARD CERTIFIED ORTHODONTIST status migrainosus 10/10/2018 F41.9 Anxiety disorder, unspecified Andre Fairbanks MD 10/10/2018 F41.9 Anxiety disorder, unspecified Katarina Shortle, BOARD CERTIFIED ORTHODONTIST 10/10/2018 F32.9 Major depressive disorder, single Katarina Shortle, BOARD CERTIFIED ORTHODONTIST episode, unspecified 10/10/2018 E53.9 Vitamin B deficiency, unspecified Katarina Shortle, BOARD CERTIFIED ORTHODONTIST 10/09/2018 R20.0 Anesthesia of skin HARMAN Gray 10/09/2018 R53.1 Weakness HARMAN Gray 10/09/2018 D72.829 Elevated white blood cell count, HARMAN Gray unspecified 10/09/2018 F32.9 Major depressive disorder, single HARMAN Gray episode, unspecified Plan of Treatment Future Appointment(s):03/26/2019 1:00 pm - Scott Casey NP at [facility]02/19/2019 - Scott Casey NPG43.109 Migraine with aura , not intractable, without status unuwshvamluK30.0 Trigeminal neuralgiaNew Medication:Gabapentin 300 mg - Take one cap by mouth for one week; 1 cap by mouth twice a day for 1 wk; then take one cap in the morning and two caps hsCarbamazepine ER 200 mg - Take one cap in the morning and two caps at night for two weeks, then take2 capsules by mouth twice a dayFollow up:ONE ETWTWU30.899 Other watcher automat long goods (current) drug therapy Functional Status Description No Information Available Mental Status Description No Information Available Referrals Description No Information Available
--- NOTE | 2019-02-22 17:45 | ED ---
Complex/Multi-Sys Presentation - HPI Summary HPI Summary: 48 year old F brought in by EMS to [facility] complains of left-sided shoulder pain rated 10/10 in severity radiating up her left paracervical neck, into her left anterior upper chest wall, down her left arm, to her left fingers with associated left finger numbness that started "a while ago." Was seen by neurologist on Sunday02/19/19 for her symptoms who stated it had "something to do with my nerves." Patient denies chest pain. Patient states she went to the bathroom to have a bowel movement today and passed blood. She denies abdominal pain. Symptoms aggravated by nothing. Symptoms alleviated by nothing. - History Of Current Complaint Chief Complaint: EDChestWallPain Time Seen by Provider: 02/22/19 17:35 Hx Obtained From: Patient Onset/Duration: Still Present, Other - "a while ago" Timing: Constant Severity Currently: Severe - 10/10 Aggravating Factor(s): Nothing Alleviating Factor(s): Nothing Associated Signs And Symptoms: Positive: Other - GI bleed; NEG: chest pain, abdominal pain - Allergies/Home Medications Allergies/Adverse Reactions: Allergies Allergy/AdvReac Type Severity Reaction Status Date / Time bupropion [From Wellbutrin] Allergy Hives Verified 02/22/19 17:07 Home Medications: Home Medications Gabapentin 300 mg PO DAILY 02/22/19 [History Confirmed 02/22/19] Varenicline Tartrate [Chantix] 1 mg PO BID 02/22/19 [History Confirmed 02/22/19] PMH/Surg Hx/FS Hx/Imm Hx Endocrine/Hematology History: Denies: Hx Diabetes Cardiovascular History: Denies: Hx Hypertension, Hx Pacemaker/ICD History: Denies: Hx Dialysis, Hx Renal Disease Sensory History: Reports: Hx Contacts or Glasses Denies: Hx Deafness, Hx Hearing Aid Opthamlomology History: Reports: Hx Contacts or Glasses Psychiatric History: Reports: Hx Anxiety, Hx Depression Denies: Hx Panic Disorder - Surgical History Surgery Procedure, Year, and Place: tubal ligation Infectious Disease History: No Infectious Disease History: Denies: Traveled Outside the [place] in Last 30 Days - Family History Known Family History: Positive: Cardiac Disease, Hypertension, Diabetes Family History: Breast CA; Brain CA - Social History Alcohol Use: Occasionally Hx Substance Use: Yes Substance Use Type: Reports: Marijuana Hx Tobacco Use: Yes Smoking Status (MU): Light Every Day Tobacco Smoker Type: Cigarettes Review of Systems Negative: Chest Pain Negative: Abdominal Pain Positive: Other - left-sided shoulder pain radiating up her left paracervical neck, into her left anterior upper chest wall, down her left arm, to her left fingers Positive: Numbness - left fingers All Other Systems Reviewed And Are Negative: Yes Physical Exam - Summary Physical Exam Summary: Appearance: The patient is well-nourished in no acute distress and in no acute pain. Skin: The skin is warm and dry, and skin color reflects adequate perfusion. HEENT: The head is normocephalic and atraumatic. The pupils are equal and reactive. The conjunctivae are clear and without drainage. Nares are patent and without drainage. Mouth reveals moist mucous membranes, and the throat is without erythema and exudate. The external ears are intact. The ear canals are patent and without drainage. The tympanic membranes are intact. Neck: The neck is supple with full range of motion. There is tenderness in the left paracervical area. There are no carotid bruits. There is no neck vein distension. Respiratory: There is tenderness in the left anterior upper chest wall. Lungs are clear to auscultation and breath sounds are symmetrical and equal. Cardiovascular: Heart is regular rate and rhythm. There is no murmur or rub auscultated. There is no peripheral edema and pulses are symmetrical and equal. Abdomen: The abdomen is soft and non-tender. There are normal bowel sounds heard in all four quadrants and there is no organomegaly palpated. Musculoskeletal: There is no back tenderness noted. Extremities have full range of motion. There is tenderness in the left posterior shoulder. There is good capillary refill. There is no peripheral edema or calf tenderness elicited. Neurological: Patient is alert and oriented to person, place and time. The patient has symmetrical motor strength in all four extremities. Cranial nerves are grossly intact. Deep tendon reflexes are symmetrical and equal in all four extremities. Psychiatric: The patient has an appropriate affect and does not exhibit any anxiety or depression. Triage Information Reviewed: Yes Vital Signs On Initial Exam: Initial Vitals Temp Pulse Resp BP Pulse Ox 97.7 F 76 18 112/71 99 02/22/19 17:04 02/22/19 17:04 02/22/19 17:04 02/22/19 17:04 02/22/19 17:04 Vital Signs Reviewed: Yes Procedures - Sedation Patient Received Moderate/Deep Sedation with Procedure: No Diagnostics - Vital Signs Vital Signs Temp Pulse Resp BP Pulse Ox 02/22/19 17:10 82 96 02/22/19 17:08 75 133/74 96 02/22/19 17:04 97.7 F 76 18 112/71 99 - Laboratory Result Diagrams: 02/22/19 17:55 02/22/19 17:55 Lab Statement: Any lab studies that have been ordered have been reviewed, and results considered in the medical decision making process. - EKG 1748 Cardiac Rate: NL - 69 BPM EKG Rhythm: Sinus Rhythm Ectopy: None Summary of EKG Findings: Normal sinus rhythm, normal ST, no ectopy, no STEMI Re-Evaluation - Re-Evaluation First Eval Re-Evaluation Time: 19:26 Change: Improved Comment: Pt is mildly improved. Pt initially refused steroid treatment but agreed to it after discussion. She will need to consult PCP for referal to neurosurgery. Complex Multi-Symp Course/Dx Course Of Treatment: Ms. Whittaker presented clinically like a cervical radiculopathy. She is complaining of chest pain therefore she was monitored and her troponin and EKG were obtained as well as other labs. They're negative and I'm waiting for CT report of her cervical spine at this time. - Diagnoses Provider Diagnoses: Cervical radiculopathy Discharge ED - Sign-Out/Discharge Documenting (check all that apply): Sign-Out Patient Signing out patient TO: Angie Prince - Awaiting CT Spine and pending disposition Receiving patient FROM: Franko Go - Discharge Plan Condition: Stable Disposition: HOME Prescriptions: predniSONE [Prednisone 20 MG TAB] 60 mg PO DAILY 5 Days #15 tablet Patient Education Materials: Cervical Radiculopathy (ED) Referrals: Monie Fuentes, KILN BURNER [Primary Care Provider] - 2 Days Additional Instructions: Follow up with your primary care provider in 2-3 days. Return to the Emergency Department for new or worsening symptoms. - Billing Disposition and Condition Condition: STABLE Disposition: Home - Attestation Statements Document Initiated by Scribe: Yes Documenting Scribe: Rosey Saleh Provider For Whom Scribe is Documenting (Include Credential): Franko Go MD Scribe Attestation: Rosey Nielson, scribed for Franko Go MD on 02/23/19 at 0730. Scribe Documentation Reviewed: Yes Provider Attestation: The documentation as recorded by the scribe, Rosey Saleh accurately reflects the service I personally performed and the decisions made by me, Franko Go MD Status of Scribe Document: Viewed
[2019-02-22] MEDS ORDERED: LORazepam TAB(*) 1 MG PO ONE (17:48)
[2019-02-22] MEDS ORDERED: Ketorolac INJ* 30 MG/ML 1 ML VIAL IM ONE (17:48)
[2019-02-22 18:17] LABS: ABS Basophils 0.1 10^3/ul (0-0.2); ABS Eosinophils 0.1 10^3/ul (0-0.6); ABS Lymphocytes 2.4 10^3/ul (1.0-4.8); ABS Monocytes 0.8 10^3/ul (0-0.8); ABS Neutrophils 6.6 10^3/ul (1.5-7.7); Eosinophil % 1.3 %; Hematocrit 44 % (35-47); Hemoglobin 14.5 g/dL (12.0-16.0); Lymphocyte % 23.7 %; Mean Corpuscular HGB Conc 33 g/dL (31-36); Mean Corpuscular Hemoglobin 29 pg (27-31); Mean Corpuscular Volume 88 fL (80-97); Mean Platelet Volume 7.9 fL (7.4-10.4); Platelet Count 281 10^3/uL (150-450); Red Blood Count 4.95 10^6 /uL (3.70-4.87); Red Cell Distribution Width 13 % (10-15); White Blood Count 9.9 10^3/uL (3.5-10.8)
[2019-02-22 18:20] LABS: INR 0.88 (0.82-1.09)
[2019-02-22 18:35] LABS: Albumin 3.8 g/dL (3.2-5.2); Albumin/Globulin Ratio 1.5 (1-3); BUN/Creatinine Ratio 10.7 (8-20); Calcium 9.1 mg/dL (8.6-10.3); EGFR African American 88.3 (>60); Globulin 2.6 g/dL (2-4); Potassium 4.2 mmol/L (3.5-5.0); Total Bilirubin 0.2 mg/dL (0.2-1.0); Total Protein 6.4 g/dL (6.4-8.9)
--- NOTE | 2019-02-22 19:09 | ED ---
Progress - Progress Note Progress Note: Pt is a sign-out from Dr. Go at the 02/22/2019 1900 shift change pending disposition. A Cervical Spine CT reveals: IMPRESSION: 1. No acute fracture or malalignment. 2. Broad-based disc protrusion at C5/C6, eccentric to the left, narrowing the left C6 neural foramen. This could be better evaluated with MRI. 3. Degenerative changes above. Pt will be discharged home with PCP follow up. Pt is agreeable with this plan. Re-Evaluation - Re-Evaluation First Eval Re-Evaluation Time: 19:26 Change: Improved Comment: Pt is mildly improved. Pt initially refused steroid treatment but agreed to it after discussion. She will need to consult PCP for referal to neurosurgery. Course/Dx - Course Course Of Treatment: Pt is a sign-out from Dr. Go at the 02/22/2019 1900 shift change pending disposition. A Cervical Spine CT reveals: IMPRESSION: 1. No acute fracture or malalignment. 2. Broad-based disc protrusion at C5/C6, eccentric to the left, narrowing the. left C6 neural foramen. This could be better evaluated with MRI. 3. Degenerative changes above. Pt will be discharged home with PCP follow up. Pt is agreeable with this plan. - Diagnoses Provider Diagnoses: Cervical radiculopathy Discharge ED - Sign-Out/Discharge Documenting (check all that apply): Patient Departure - discharge, Receiving Sign-Out Receiving patient FROM: Angie Prince - Discharge Plan Condition: Stable Disposition: HOME Prescriptions: predniSONE [Prednisone 20 MG TAB] 60 mg PO DAILY 5 Days #15 tablet Patient Education Materials: Cervical Radiculopathy (ED) Referrals: Monie Fuentes [facility] [Primary Care Provider] - 2 Days Additional Instructions: Follow up with your primary care provider in 2-3 days. Return to the Emergency Department for new or worsening symptoms. - Billing Disposition and Condition Condition: STABLE Disposition: Home - Attestation Statements Document Initiated by Jessica: Yes Documenting Scribe: Madi Mcclure Provider For Whom Jessica is Documenting (Include Credential): Angie Prince MD Scribe Attestation: Madi Nielson, scribed for Angie Prince MD on 02/22/19 at 2135. Scribe Documentation Reviewed: Yes Provider Attestation: The documentation as recorded by the Madi hollingsworth accurately reflects the service I personally performed and the decisions made by me, Angie Prince MD Status of Scribe Document: Viewed
[2019-02-22] MEDS ORDERED: predniSONE TAB* 20 MG PO ONE (19:20)
[2019-02-22 19:40] VITALS: BP 114/71
== END 2019-02-22 19:40 | disposition home or self-care (01) ==
LOC: ED 17:01
DX: M54.12 Radiculopathy, cervical region (principal); Z79.899 Other long term (current) drug therapy; F17.210 Nicotine dependence, cigarettes, uncomplicated; F41.9 Anxiety disorder, unspecified; F32.9 Major depressive disorder, single episode, unspecified
CPT/HCPCS: 36415; 72125; 80053; 83605; 84484; 85025; 85610; 93005; 96372; 99284; A9270-GY; J1885; J7512